=== PATIENT | female | born 1945 | race Caucasian/White ===

== ENCOUNTER 2021-12-27 12:31 | Outpatient (CLI) | payer MEDICARE ==
[2021-12-28 00:06] LABS: SARS-CoV-2 PCR by NAA Not Detected (NotDetected)
== END 2021-12-27 12:32 | disposition home or self-care (01) ==
LOC: CSHLAB 12:31
PROVIDERS: ATTEND Internal Medicine Pulmonary Disease
DX: Z20.822 Contact with and (suspected) exposure to COVID-19 (principal)
CPT/HCPCS: U0003; U0005

== ENCOUNTER 2023-02-12 11:01 | Outpatient (CLI) | payer OTHER | END 2023-02-12 11:02 | disposition home or self-care (01) | LOC: CSHMAMMO 11:01 | PROVIDERS: ATTEND Family Medicine | DX: Z12.31 Encounter for screening mammogram for malignant neoplasm of breast (principal); R92.1 Mammographic calcification found on diagnostic imaging of breast; Z98.890 Other specified postprocedural states; Z91.89 Other specified personal risk factors, not elsewhere classified | CPT/HCPCS: 77063; 77067 ==